=== PATIENT | female | born 1990 | race Two or more races ===

== ENCOUNTER 2018-11-21 22:38 | Emergency (ER) | payer SELFPAY ==
[~2018-11-21] VITALS: Ht 154.9 cm; Wt 84.8 kg
[~2018-11-21 22:38] MED LIST: HYDR50CA2
[2018-11-22 00:07] LABS: Urine Bacteria MOD /hpf (None Seen); Urine Blood Negative /uL (Negative); Urine Specific Gravity 1.006 (1.001-1.035); Urine WBC 3 /hpf (0 - 5)
[2018-11-22 01:40] LABS: Basophils # (auto) 0 uL; Basophils % (auto) 0.5 % (0.0-2.0); Eosinophils # (auto) 0.1 uL; Eosinophils % (auto) 1.1 % (0.0-7.0); Hematocrit 42.3 % (36.0-46.0); Hemoglobin 14.2 g/dL (12.2-16.2); Lymphocytes # (auto) 2.3 uL; Lymphocytes % (auto) 25.7 % (10.0-50.0); Mean Corpuscular Hemoglobin 27.3 pg (28.0-32.0); Mean Corpuscular Hgb Conc. 33.5 g/dL (32.0-36.0); Mean Corpuscular Volume 81.7 fL (80.0-100.0); Monocytes # (auto) 0.6 uL; Monocytes % (auto) 6.4 % (0.0-12.0); Neutrophils % (auto) 66.3 % (37.0-80.0); Nucleated Red Blood Cells % 0.1 %; Platelet Count (auto) 208 10^3/uL (140-450); Red Blood Cells 5.18 10^6/uL (4.0-5.20); Red Cell Distribution Width 13.9 % (11.8-14.3); White Blood Cell 9.1 10^3/uL (4.4-10.8)
[2018-11-22 01:43] LABS: Albumin 3.7 g/dL (3.4-5.0); BUN/Creatinine Ratio 17.9; Calcium 8.7 mg/dL (8.5-10.1); Potassium 4.2 mmol/L (3.5-5.1)
[2018-11-22 01:47] LABS: Bilirubin, Total 0.3 mg/dL (0.2-1.0); Total Protein 8.1 g/dL (6.4-8.2)
[2018-11-22] MEDS ORDERED: NITROFURANTOIN (MONO) 100 mg CAP PO ONE (02:30)
[2018-11-22 02:32] VITALS: BP 152/76
== END 2018-11-22 02:59 | disposition home or self-care (01) ==
LOC: ER 22:42
DX: N39.0 Urinary tract infection, site not specified (principal); K59.00 Constipation, unspecified
CPT/HCPCS: 36415; 74176; 80053; 81001; 81025; 85025

== ENCOUNTER 2020-07-07 18:08 | Emergency (ER) | payer SELFPAY ==
[~2020-07-07] VITALS: Ht 154.9 cm; Wt 77.1 kg
[2020-07-07] MEDS ORDERED: DexAMETHasone SOD PHOS 10MG/1ML VIAL INJ IV ONE (21:00)
[2020-07-07] MEDS ORDERED: DOXYCYCLINE 100MG/250ML 250 ML IV ONE (21:00)
[2020-07-07 21:16] LABS: Basophils # (auto) 0 10 ^3/uL (0-0.2); Basophils % (auto) 0.3 % (0.0-2.0); Eosinophils # (auto) 0.1 10 ^3/uL (0-0.8); Eosinophils % (auto) 1.1 % (0.0-7.0); Hematocrit 39.6 % (36.0-46.0); Hemoglobin 12.9 g/dL (12.2-16.2); Lymphocytes # (auto) 1.7 10 ^3/uL (0.4-5.4); Lymphocytes % (auto) 34.4 % (10.0-50.0); Mean Corpuscular Hemoglobin 27.5 pg (28.0-32.0); Mean Corpuscular Hgb Conc. 32.7 g/dL (32.0-36.0); Monocytes # (auto) 0.6 10 ^3/uL (0-1.3); Monocytes % (auto) 12.1 % (0.0-12.0); Neutrophils # (auto) 2.5 10 ^3/uL (1.6-8.6); Neutrophils % (auto) 52.1 % (37.0-80.0); Platelet Count (auto) 116 10^3/uL (140-450); Red Blood Cells 4.71 10^6/uL (4.0-5.20); Red Cell Distribution Width 13.9 % (11.8-14.3); White Blood Cell 4.8 10^3/uL (4.4-10.8)
[2020-07-07] MEDS ORDERED: DOXYCYCLINE 100 MG TAB/CAP PO ONE (21:30)
[2020-07-07] MEDS ORDERED: DexAMETHasone 4 MG TAB PO ONE (21:30)
[2020-07-07 21:33] LABS: Albumin 3.3 g/dL (3.4-5.0); Potassium 3.6 mmol/L (3.5-5.1)
[2020-07-07 21:37] LABS: BUN/Creatinine Ratio 21.2; Bilirubin, Total 0.1 mg/dL (0.2-1.0); Total Protein 7.1 g/dL (6.4-8.2)
[2020-07-07 22:37] VITALS: BP 106/63
== END 2020-07-07 23:05 | disposition home or self-care (01) ==
LOC: ER 18:08
DX: J18.9 Pneumonia, unspecified organism (principal); J01.00 Acute maxillary sinusitis, unspecified; Z20.828 Contact with and (suspected) exposure to other viral communicable diseases
CPT/HCPCS: 36415; 71045; 80053; 85025; 87426; 99284; J8540; U0003

== ENCOUNTER 2020-07-08 05:55 | Inpatient (IN) | payer MEDICAID ==
[~2020-07-08] VITALS: Ht 154.9 cm; Wt 89.5 kg
[2020-07-08] MEDS ORDERED: SODIUM CHLORIDE 0.9% 1,000 ML IV ONE (10:30)
[2020-07-08 12:59] LABS: Urine Bacteria FEW /hpf (None Seen); Urine Blood Negative /uL (Negative); Urine Specific Gravity 1.006 (1.001-1.035); Urine WBC 1 /hpf (0 - 5)
[2020-07-08] MEDS ORDERED: cefTRIAXone 1GM/50ML D5W 50 ML IV ONE (15:00)
[2020-07-08] MEDS ORDERED: CHOLECALCIFEROL (VITD3) 2,000 UNIT CAP PO ONE (15:00)
[2020-07-08] MEDS ORDERED: ZINC SULFATE 220mg CAP or TAB PO ONE (15:00)
[2020-07-08] MEDS ORDERED: ASCORBIC ACID 500 MG TAB PO ONE (15:00)
[2020-07-08] MEDS ORDERED: AZITHROMYCIN 500MG/ 250ML 250 ML IV ONE (15:00)
[2020-07-08 17:31] LABS: Basophils # (auto) 0 10 ^3/uL (0-0.2); Eosinophils # (auto) 0 10 ^3/uL (0-0.8); Hematocrit 38.6 % (36.0-46.0); Hemoglobin 12.6 g/dL (12.2-16.2); Mean Corpuscular Hemoglobin 26.8 pg (28.0-32.0); Monocytes # (auto) 0.3 10 ^3/uL (0-1.3); Nucleated Red Blood Cells % 0.1 %
[2020-07-08 17:32] LABS: Basophils % (auto) 0.3 % (0.0-2.0); Lymphocytes % (auto) 33.7 % (10.0-50.0); Mean Corpuscular Hgb Conc. 32.7 g/dL (32.0-36.0); Mean Corpuscular Volume 81.8 fL (80.0-100.0); Monocytes % (auto) 9.9 % (0.0-12.0); Neutrophils # (auto) 1.7 10 ^3/uL (1.6-8.6); Neutrophils % (auto) 56.1 % (37.0-80.0); Platelet Count (auto) 133 10^3/uL (140-450); Red Blood Cells 4.72 10^6/uL (4.0-5.20)
[2020-07-08 17:47] LABS: Albumin 3.5 g/dL (3.4-5.0); Calcium 8.2 mg/dL (8.5-10.1); Potassium 3.4 mmol/L (3.5-5.1)
[2020-07-08 17:51] LABS: BUN/Creatinine Ratio 10.4; Bilirubin, Total 0.2 mg/dL (0.2-1.0); CRP High Sensitivity 0.54 mg/dL (< 0.3); Total Protein 7.3 g/dL (6.4-8.2)
--- NOTE | 2020-07-08 19:50 | NUR ---
Telemetry admit from [facility] admitted to Telemetry unit after SBAR received. Patient oriented to JAX HOBSON RN primary RN, unit, room, bed, and unit policies regarding patient care and visiting hours. Patient now on continuous telemetry monitoring, tele box # 4 and telemetry reading on arrival to unit is Sinus Rhythm at 92BPM. Patient placed on bedside oxygen, weighed by bedscale and encouraged to call if they need something. All questions and concerns addressed, patient verbalized understanding.
[2020-07-08 20:00] VITALS: BP 119/75
[2020-07-08] MEDS: BUDESONIDE (INHALATION) 180 MCG IH IN SCH (22:00)
[2020-07-08] MEDS: ALBUTEROL SULF HFA 90MCG INH 200DOSE IN SCH (22:00)
[2020-07-08 22:01] VITALS: BP 119/75
--- NOTE | 2020-07-08 22:35 | NUR ---
Respiratory note: PT SEEN AND ASSESSED AT THIS TIME. NO RESPIRATORY DISTRESS NOTED BUT THE PT WAS COMPLAINING OF BEING NERVOUS/ANXIOUS. HR 97 RR 18 SP02 98% ON ROOM AIR.
[2020-07-08] MEDS: DOXYCYCLINE 100MG/250ML 250 ML IV SCH (22:37)
[2020-07-08 23:29] VITALS: BP 119/75
--- NOTE | 2020-07-09 04:58 | NUR ---
ROUNDS Patient is resting in bed with eyes closed, no distress noted and patient denies pain.
[2020-07-09 05:00] VITALS: BP 109/67
[2020-07-09] MEDS: ALBUTEROL SULF HFA 90MCG INH 200DOSE IN SCH ×3 (06:00→23:01)
[2020-07-09] MEDS: BUDESONIDE (INHALATION) 180 MCG IH IN SCH ×2 (06:00→23:01)
--- NOTE | 2020-07-09 08:00 | NUR ---
ASSESSMENT NOTE PT IS ALERT ORIENTED X4, SITTING UP IN BED COMFORTABLY, NO DISTRESS NOTED, DENIES COUGH OR SHORTNESS OF BREATH, SELF REPOSITION NEEDED, PAIN 0/10, AMBULATE NEEDED, CALL LIGHT WITHIN REACH
[2020-07-09 09:04] VITALS: BP 116/75
--- NOTE | 2020-07-09 09:30 | NUR ---
IV insertion IV access obtained, via clean sterile technique by inserting 22 gauge catheter at after attempt(s). IV secured properly. No trauma to site. Patient tolerated procedure well.
[2020-07-09] MEDS: DOXYCYCLINE 100MG/250ML 250 ML IV SCH ×2 (09:38→22:15)
[2020-07-09] MEDS: PANTOPRAZOLE 40 MG TAB PO SCH (09:39)
[2020-07-09] MEDS: ASCORBIC ACID 1,000 MG TAB PO SCH (09:39)
[2020-07-09] MEDS: CHOLECALCIFEROL (VITD3) 2,000 UNIT CAP PO SCH (09:39)
[2020-07-09] MEDS: ZINC SULFATE 220mg CAP or TAB PO SCH (09:39)
[2020-07-09] MEDS: ENOXAPARIN SOD 40 MG/0.4 ML SYRINGE SC SCH (09:39)
--- NOTE | 2020-07-09 09:44 | NUR ---
IV removal IV DC'd with sterile technique, catheter fully intact. Pressure dressing applied to site. Patient tolerated procedure well. Discharged with aftercare instructions per MD. NOTE: from rt ac, since its tender
[2020-07-09] MEDS ORDERED: DexAMETHasone SOD PHOS 10MG/1ML VIAL INJ IV SCH (10:00)
[2020-07-09] MEDS ORDERED: POTASSIUM EFFERVESENT TAB 25 MEQ PO ONE (11:30)
--- NOTE | 2020-07-09 11:30 | NUR ---
CATHERINE QUILLER MACHINE FIXER AT BED SIDE FOLLOWING UP ON PT
[2020-07-09] MEDS ORDERED: ALPRAZolam 0.25 MG TAB PO PRN (11:45)
[2020-07-09] MEDS ORDERED: ONDANSETRON HCL 4 MG/2 ML VIAL IV PRN (13:00)
[2020-07-09 13:10] VITALS: BP 107/64
--- NOTE | 2020-07-09 13:20 | NUR ---
NAUSEA FRO PO K ZOFRAN ORDERS OBTAIN FROM CATHERINE STORM
--- NOTE | 2020-07-09 14:00 | NUR ---
PT STABLE, CONTINUE MONITORING
[2020-07-09 15:42] LABS: BUN/Creatinine Ratio 5.8; Potassium 4.2 mmol/L (3.5-5.1)
[2020-07-09 17:12] VITALS: BP 111/53
--- NOTE | 2020-07-09 18:55 | NUR ---
PT CONTINUE STABLE, CONTINUE MONITORING
[2020-07-09 20:00] VITALS: BP 113/58
[2020-07-09] MEDS: ACETAMINOPHEN 500 MG TAB PO PRN (20:29)
--- NOTE | 2020-07-09 20:30 | NUR ---
Given tylenol as ordered for temperature of 101.5 and cooling measures applied. Will monitor
[2020-07-09 22:00] VITALS: BP 113/58
--- NOTE | 2020-07-09 22:00 | NUR ---
Temperature check is 98.1. patient is resting in bed alert and awake, no distress noted.
--- NOTE | 2020-07-09 22:38 | NUR ---
Patient refused xanax
--- NOTE | 2020-07-09 22:51 | NUR ---
PATIENTS TEMPERATURE AT 2200 VITAL SIGNS WERE 101.5 F. APPLIED A COLD WASH CLOTH AND REMOVED BLANKETS. RN WAS NOTIFIED OF TEMPERATURE.
--- NOTE | 2020-07-10 04:00 | NUR ---
Patient was having some sweats from fever. Complete bed changed done. Patient is resting in bed at this time, no distress noted and denies pain.
[2020-07-10 05:00] VITALS: BP 116/67
[2020-07-10] MEDS: DOXYCYCLINE 100MG/250ML 250 ML IV SCH ×2 (08:56→21:09)
[2020-07-10] MEDS: ASCORBIC ACID 1,000 MG TAB PO SCH (08:56)
[2020-07-10] MEDS: ENOXAPARIN SOD 40 MG/0.4 ML SYRINGE SC SCH (08:57)
[2020-07-10] MEDS: PANTOPRAZOLE 40 MG TAB PO SCH (08:57)
[2020-07-10] MEDS: ZINC SULFATE 220mg CAP or TAB PO SCH (08:57)
[2020-07-10] MEDS: CHOLECALCIFEROL (VITD3) 2,000 UNIT CAP PO SCH (08:57)
[2020-07-10 09:25] VITALS: BP 123/60
[2020-07-10] MEDS: BUDESONIDE (INHALATION) 180 MCG IH IN SCH ×2 (10:00→22:14)
[2020-07-10 14:00] VITALS: BP 123/75
[2020-07-10] MEDS: ALBUTEROL SULF HFA 90MCG INH 200DOSE IN SCH ×3 (14:30→22:14)
[2020-07-10] MEDS ORDERED: methylPREDNISolone SOD SUCC 40 MG/ML VL IV ONE (15:45)
[2020-07-10] MEDS: ACETAMINOPHEN 500 MG TAB PO PRN (16:49)
[2020-07-10 17:00] VITALS: BP 115/68
--- NOTE | 2020-07-10 19:30 | NUR ---
Opening Shift Note Assumed care of patient, awake and alert. No S/S of distress/SOB or pain. Instructed on POC and to call for assist PRN, will continue to monitor for changes Q1hr and PRN.
[2020-07-10 20:00] VITALS: BP 122/58
[2020-07-10] MEDS: methylPREDNISolone SOD SUCC 40 MG/ML VL IV SCH (21:10)
[2020-07-10 22:00] VITALS: BP 122/58
[2020-07-11 05:00] VITALS: BP 122/71
[2020-07-11] MEDS: ALBUTEROL SULF HFA 90MCG INH 200DOSE IN SCH ×2 (06:45→14:24)
[2020-07-11] MEDS: BUDESONIDE (INHALATION) 180 MCG IH IN SCH (06:45)
[2020-07-11 08:36] VITALS: BP 116/72
[2020-07-11] MEDS: methylPREDNISolone SOD SUCC 40 MG/ML VL IV SCH (10:08)
[2020-07-11] MEDS: PANTOPRAZOLE 40 MG TAB PO SCH (10:09)
[2020-07-11] MEDS: ZINC SULFATE 220mg CAP or TAB PO SCH (10:09)
[2020-07-11] MEDS: ASCORBIC ACID 1,000 MG TAB PO SCH (10:09)
[2020-07-11] MEDS: DOXYCYCLINE 100MG/250ML 250 ML IV SCH (10:09)
[2020-07-11] MEDS: CHOLECALCIFEROL (VITD3) 2,000 UNIT CAP PO SCH (10:09)
[2020-07-11] MEDS: ENOXAPARIN SOD 40 MG/0.4 ML SYRINGE SC SCH (10:10)
[2020-07-11 12:14] VITALS: BP 125/75
--- NOTE | 2020-07-11 14:26 | NUR ---
Nutrition Assessment Notes Please refer to link for full assessment notes. Est Energy needs: 1428-8363 kcals (14-18 kcal/kgBW) Est Protein needs: 38-48 gms/day (0.8-1.0 gm/kgBW) Will continue to monitor and reassess prn. Addendum: 07/11/20 at [address] Amended: Links added.
--- NOTE | 2020-07-11 16:49 | NUR ---
Discharge instructions given as ordered. Encourage to follow up with PMD as instructed. All questions and concerns addressed. Patient verbalized understanding. Medication reconciliation form completed and copy given to patient. IV removed with catheter intact, pressure dressing applied. Telemetry unit returned to ICU. Patient taken to vehicle via wheelchair with all personal belongings, accompanied by staff and family member. No distress noted at time of departure. PATIENT VERBALIZED UNDERSTANDING OF ALL DISCHARGE INSTRUCTIONS.
== END 2020-07-11 16:50 | disposition home or self-care (01) | DRG 137 ==
LOC: EDBD 05:55 → ER 05:55 → TELE 05:56 → TELE-EAST 19:50
PROVIDERS: ADMIT Nurse Practitioner Acute Care; ATTEND Internal Medicine
DX: U07.1 COVID-19 (principal); E66.9 Obesity, unspecified; J12.89 Other viral pneumonia; E87.6 Hypokalemia; F41.9 Anxiety disorder, unspecified; M41.9 Scoliosis, unspecified; Z68.37 Body mass index [BMI] 37.0-37.9, adult; E44.1 Mild protein-calorie malnutrition
CPT/HCPCS: 36415; 71250; 80048; 80053; 81001; 82728; 83615; 83735; 84443; 85025; 85379; 86141; 94640; 96365; 96366; 96368; G0378; J0696; J2405; J3490

== ENCOUNTER 2020-07-11 19:23 | Emergency (ER) | payer MEDICAID ==
[~2020-07-11] VITALS: Ht 167.6 cm; Wt 72.6 kg
[2020-07-11] MEDS ORDERED: ACETAMINOPHEN 325 MG TAB PO ONE (19:45)
[2020-07-11 19:49] VITALS: BP 127/90
== END 2020-07-11 19:55 | disposition home or self-care (01) ==
LOC: ER 19:23 → EDBD 19:23 → ER 19:55
DX: R06.02 Shortness of breath (principal); F41.9 Anxiety disorder, unspecified; Z79.899 Other long term (current) drug therapy; Z20.828 Contact with and (suspected) exposure to other viral communicable diseases

== ENCOUNTER 2020-07-13 11:37 | Inpatient (IN) | payer MEDICAID ==
[~2020-07-13] VITALS: Ht 154.9 cm; Wt 85.9 kg
[2020-07-13] MEDS ORDERED: ONDANSETRON HCL 4 MG/2 ML VIAL IV ONE (11:45)
[2020-07-13] MEDS ORDERED: MORPHINE SULFATE 4 MG/ML SYR/VIAL IV ONE (11:45)
[2020-07-13] MEDS ORDERED: SODIUM CHLORIDE 0.9% 1,000 ML IV ONE ×2 (11:45)
[2020-07-13 12:23] LABS: Basophils # (auto) 0 10 ^3/uL (0-0.2); Basophils % (auto) 0.3 % (0.0-2.0); Eosinophils # (auto) 0 10 ^3/uL (0-0.8); Eosinophils % (auto) 0.1 % (0.0-7.0); Hematocrit 40.9 % (36.0-46.0); Hemoglobin 13.6 g/dL (12.2-16.2); Lymphocytes % (auto) 15.1 % (10.0-50.0); Mean Corpuscular Hemoglobin 27.1 pg (28.0-32.0); Mean Corpuscular Hgb Conc. 33.4 g/dL (32.0-36.0); Mean Corpuscular Volume 81.3 fL (80.0-100.0); Monocytes # (auto) 0.7 10 ^3/uL (0-1.3); Neutrophils % (auto) 74.5 % (37.0-80.0); Nucleated Red Blood Cells % 0.1 %; Platelet Count (auto) 113 10^3/uL (140-450); Red Blood Cells 5.03 10^6/uL (4.0-5.20); Red Cell Distribution Width 13.7 % (11.8-14.3); White Blood Cell 6.7 10^3/uL (4.4-10.8)
[2020-07-13 12:39] LABS: Chloride 102 mmol/L (98-107); Potassium 3.3 mmol/L (3.5-5.1); Sodium 134 mmol/L (136-145)
[2020-07-13 12:51] LABS: Alanine Aminotransferase 27 U/L (13-56); Albumin 3.2 g/dL (3.4-5.0); Alkaline Phosphatase 51 U/L (45-117); Anion Gap 7 (5-15); Aspartate Aminotransferase 25 U/L (15-37); BUN/Creatinine Ratio 14.8; Bilirubin, Total 0.3 mg/dL (0.2-1.0); Blood Urea Nitrogen 8 mg/dL (7-18); Calcium 8.2 mg/dL (8.5-10.1); Carbon Dioxide 25 mmol/L (21-32); GFR African American 173 mL/min; GFR Non-African American 143 mL/min; Glucose 100 mg/dL (74-106); Lipase 948 U/L (73-393); Total Protein 7.1 g/dL (6.4-8.2)
[2020-07-13] MEDS ORDERED: PIPERACILLIN-TAZOB 3.375GM 100 ML IV ONE (14:45)
[2020-07-13] MEDS ORDERED: ACETAMINOPHEN 650 mg PER 20.3 mL UD PO ONE (15:30)
[2020-07-13] MEDS ORDERED: NITROGLYCERIN 0.4 MG SL TAB SL PRN (15:45)
[2020-07-13] MEDS ORDERED: MORPHINE SULF INJ 2 MG/ML SYRINGE 1ML IV PRN (15:45)
[2020-07-13] MEDS ORDERED: DOXY100C2 PO (16:21)
[2020-07-13] MEDS ORDERED: BUDE1AER4 IN (16:21)
[2020-07-13] MEDS ORDERED: CHOL50007 PO (16:21)
[2020-07-13] MEDS ORDERED: METH-818 PO (16:21)
[2020-07-13] MEDS ORDERED: levoFLOXacin 500MG 100 ML IV ONE (16:30)
[2020-07-13] MEDS ORDERED: TEMAZEPAM 15 MG CAP PO PRN (16:30)
[2020-07-13] MEDS: SOD CHL 0.9%/ KCL 40MEQ 1,000 ML IV SCH (18:26)
[2020-07-13] MEDS: POTASSIUM CHL 20MEQ/100ML 100 ML IV SCH (18:26)
[2020-07-13] MEDS: PROMETHAZINE HCL 25 MG/ML 1ML IV PRN (18:52)
[2020-07-13] MEDS: MORPHINE SULF INJ 2 MG/ML SYRINGE 1ML IV PRN (18:52)
[2020-07-13] MEDS: ACETAMINOPHEN 500 MG TAB PO PRN (18:53)
[2020-07-13] MEDS: metroNIDAZOLE 500MG/100ML 100 ML IV SCH (21:33)
[2020-07-13] MEDS: FAMOTIDINE (10MG/ML) 2ML VL IV SCH (21:33)
[2020-07-13 21:53] VITALS: BP 99/41
[2020-07-13] MEDS: BUDESONIDE (INHALATION) 180 MCG IH IN SCH (22:00)
[2020-07-13] MEDS: ALBUTEROL SULF HFA 90MCG INH 200DOSE IN SCH (22:00)
[2020-07-13] MEDS ORDERED: FAMOTIDINE 20 MG TAB PO SCH (22:00)
[2020-07-14] MEDS ORDERED: POTASSIUM CHL 20MEQ/100ML 100 ML IV ONE (00:42)
[2020-07-14] MEDS: POTASSIUM CHL 20MEQ/100ML 100 ML IV SCH (00:47)
[2020-07-14] MEDS: SOD CHL 0.9%/ KCL 40MEQ 1,000 ML IV SCH ×4 (00:50→23:47)
[2020-07-14] MEDS: MORPHINE SULF INJ 2 MG/ML SYRINGE 1ML IV PRN ×2 (02:47→11:04)
[2020-07-14] MEDS: ACETAMINOPHEN 500 MG TAB PO PRN (02:48)
[2020-07-14] MEDS: PROMETHAZINE HCL 25 MG/ML 1ML IV PRN ×2 (02:48→11:04)
[2020-07-14 05:46] VITALS: BP 106/52
[2020-07-14] MEDS: metroNIDAZOLE 500MG/100ML 100 ML IV SCH ×2 (06:23→13:32)
[2020-07-14 07:31] LABS: Basophils # (auto) 0 10 ^3/uL (0-0.2); Eosinophils # (auto) 0 10 ^3/uL (0-0.8); Monocytes # (auto) 0.3 10 ^3/uL (0-1.3); Neutrophils # (auto) 2.8 10 ^3/uL (1.6-8.6)
[2020-07-14 07:33] LABS: Basophils % (auto) 0.3 % (0.0-2.0); Hematocrit 36.1 % (36.0-46.0); Hemoglobin 11.9 g/dL (12.2-16.2); Lymphocytes # (auto) 1.2 10 ^3/uL (0.4-5.4); Lymphocytes % (auto) 27.8 % (10.0-50.0); Mean Corpuscular Hemoglobin 26.8 pg (28.0-32.0); Mean Corpuscular Volume 81.2 fL (80.0-100.0); Monocytes % (auto) 7.6 % (0.0-12.0); Neutrophils % (auto) 64.3 % (37.0-80.0); Nucleated Red Blood Cells % 0.1 %; Platelet Count (auto) 99 10^3/uL (140-450); Red Blood Cells 4.45 10^6/uL (4.0-5.20); White Blood Cell 4.3 10^3/uL (4.4-10.8)
[2020-07-14] MEDS: ALBUTEROL SULF HFA 90MCG INH 200DOSE IN SCH ×3 (07:39→22:02)
[2020-07-14] MEDS: BUDESONIDE (INHALATION) 180 MCG IH IN SCH ×3 (07:39→22:02)
[2020-07-14 07:42] LABS: Albumin 2.7 g/dL (3.4-5.0); Calcium 7.4 mg/dL (8.5-10.1); Potassium 4.3 mmol/L (3.5-5.1)
[2020-07-14 07:45] LABS: BUN/Creatinine Ratio 13.2; Bilirubin, Total 0.2 mg/dL (0.2-1.0); Total Protein 6.1 g/dL (6.4-8.2)
[2020-07-14 08:40] VITALS: BP 105/55
[2020-07-14] MEDS ORDERED: levoFLOXacin 500MG 100 ML IV SCH (10:00)
[2020-07-14] MEDS: ASCORBIC ACID 1,000 MG TAB PO SCH (10:24)
[2020-07-14] MEDS: DexAMETHasone SOD PHOS 10MG/1ML VIAL INJ IV SCH (10:24)
[2020-07-14] MEDS: ZINC SULFATE 220mg CAP or TAB PO SCH (10:24)
[2020-07-14] MEDS: FAMOTIDINE (10MG/ML) 2ML VL IV SCH ×2 (10:24→22:05)
[2020-07-14] MEDS: CHOLECALCIFEROL (VITD3) 2,000 UNIT CAP PO SCH (10:25)
[2020-07-14] MEDS: traMADol HCL 50 MG TAB PO PRN (10:25)
[2020-07-14 13:20] VITALS: BP 116/66
[2020-07-14] MEDS: DOXYCYCLINE 100MG/250ML 250 ML IV SCH (15:49)
[2020-07-14 17:21] VITALS: BP 136/77
[2020-07-14] MEDS: guaiFENesin-DM 100/10mg/5ml SYR PO PRN (17:50)
[2020-07-14 18:45] LABS: Urine Bacteria NONE SEEN /hpf (None Seen); Urine Blood Negative /uL (Negative); Urine Mucus FEW (None Seen); Urine Specific Gravity 1.016 (1.001-1.035); Urine WBC 2 /hpf (0 - 5)
[2020-07-14 21:49] VITALS: BP 110/62
[2020-07-14] MEDS ORDERED: ZOLPIDEM TARTRATE 5 MG TAB PO PRN (22:15)
[2020-07-15] MEDS: DOXYCYCLINE 100MG/250ML 250 ML IV SCH ×2 (02:20→16:04)
[2020-07-15] MEDS: traMADol HCL 50 MG TAB PO PRN (03:53)
[2020-07-15] MEDS: guaiFENesin-DM 100/10mg/5ml SYR PO PRN ×2 (03:53→09:59)
[2020-07-15 05:23] VITALS: BP 124/75
[2020-07-15] MEDS: BUDESONIDE (INHALATION) 180 MCG IH IN SCH ×2 (07:35→21:31)
[2020-07-15] MEDS: ALBUTEROL SULF HFA 90MCG INH 200DOSE IN SCH ×3 (07:35→21:31)
[2020-07-15 08:05] LABS: Basophils # (auto) 0 10 ^3/uL (0-0.2); Basophils % (auto) 0.1 % (0.0-2.0); Eosinophils # (auto) 0 10 ^3/uL (0-0.8); Hematocrit 39.3 % (36.0-46.0); Hemoglobin 12.6 g/dL (12.2-16.2); Lymphocytes # (auto) 0.9 10 ^3/uL (0.4-5.4); Lymphocytes % (auto) 13.1 % (10.0-50.0); Mean Corpuscular Hemoglobin 26.5 pg (28.0-32.0); Mean Corpuscular Volume 82.8 fL (80.0-100.0); Monocytes # (auto) 0.5 10 ^3/uL (0-1.3); Monocytes % (auto) 7.9 % (0.0-12.0); Neutrophils # (auto) 5.3 10 ^3/uL (1.6-8.6); Neutrophils % (auto) 78.9 % (37.0-80.0); Platelet Count (auto) 120 10^3/uL (140-450); Red Blood Cells 4.75 10^6/uL (4.0-5.20); Red Cell Distribution Width 14.2 % (11.8-14.3); White Blood Cell 6.8 10^3/uL (4.4-10.8)
[2020-07-15 08:21] LABS: BUN/Creatinine Ratio 14.3; Calcium 8.1 mg/dL (8.5-10.1); Potassium 4.2 mmol/L (3.5-5.1)
[2020-07-15 09:00] VITALS: BP 128/70
[2020-07-15] MEDS: DexAMETHasone SOD PHOS 10MG/1ML VIAL INJ IV SCH (09:49)
[2020-07-15] MEDS: FAMOTIDINE (10MG/ML) 2ML VL IV SCH ×2 (09:49→21:34)
[2020-07-15] MEDS: CHOLECALCIFEROL (VITD3) 2,000 UNIT CAP PO SCH (09:50)
[2020-07-15] MEDS: ZINC SULFATE 220mg CAP or TAB PO SCH (09:50)
[2020-07-15] MEDS: ASCORBIC ACID 1,000 MG TAB PO SCH (09:50)
[2020-07-15] MEDS: SOD CHL 0.9%/ KCL 40MEQ 1,000 ML IV SCH (10:10)
[2020-07-15 13:00] VITALS: BP 123/75
[2020-07-15] MEDS: guaiFENesin-CODEINE Liq 5 ML UD PO PRN ×3 (15:19→23:32)
[2020-07-15 17:00] VITALS: BP 113/65
[2020-07-15 21:30] VITALS: BP 125/71
[2020-07-16] MEDS: DOXYCYCLINE 100MG/250ML 250 ML IV SCH ×2 (03:10→15:31)
[2020-07-16 05:00] VITALS: BP 123/78
[2020-07-16 06:00] LABS: Basophils # (auto) 0 10 ^3/uL (0-0.2); Eosinophils # (auto) 0 10 ^3/uL (0-0.8); Lymphocytes # (auto) 0.8 10 ^3/uL (0.4-5.4); Mean Corpuscular Volume 81.2 fL (80.0-100.0); Monocytes # (auto) 0.4 10 ^3/uL (0-1.3)
[2020-07-16 06:02] LABS: Basophils % (auto) 0.1 % (0.0-2.0); Hematocrit 39.2 % (36.0-46.0); Hemoglobin 12.9 g/dL (12.2-16.2); Lymphocytes % (auto) 21.5 % (10.0-50.0); Mean Corpuscular Hemoglobin 26.8 pg (28.0-32.0); Monocytes % (auto) 10.8 % (0.0-12.0); Neutrophils # (auto) 2.6 10 ^3/uL (1.6-8.6); Neutrophils % (auto) 67.6 % (37.0-80.0); Platelet Count (auto) 137 10^3/uL (140-450); Red Blood Cells 4.83 10^6/uL (4.0-5.20); Red Cell Distribution Width 13.7 % (11.8-14.3); White Blood Cell 3.8 10^3/uL (4.4-10.8)
[2020-07-16 06:15] LABS: INR 1.08 (0.9-1.15); Partial Thromboplastin Time 25.6 sec (23.0-31.2)
[2020-07-16 06:16] LABS: Potassium 3.8 mmol/L (3.5-5.1)
[2020-07-16 06:22] LABS: Albumin 2.9 g/dL (3.4-5.0); BUN/Creatinine Ratio 12.5; Bilirubin, Total 0.4 mg/dL (0.2-1.0); Calcium 8.9 mg/dL (8.5-10.1); Magnesium 2.3 mg/dL (1.6-2.6); Phosphorus 2.6 mg/dL (2.5-4.90); Total Protein 7.3 g/dL (6.4-8.2)
[2020-07-16] MEDS: ALBUTEROL SULF HFA 90MCG INH 200DOSE IN SCH ×3 (07:44→22:11)
[2020-07-16] MEDS: BUDESONIDE (INHALATION) 180 MCG IH IN SCH ×2 (07:44→22:12)
[2020-07-16] MEDS: ZINC SULFATE 220mg CAP or TAB PO SCH (08:56)
[2020-07-16] MEDS: ASCORBIC ACID 1,000 MG TAB PO SCH (08:56)
[2020-07-16] MEDS: CHOLECALCIFEROL (VITD3) 2,000 UNIT CAP PO SCH (08:56)
[2020-07-16] MEDS: DexAMETHasone SOD PHOS 10MG/1ML VIAL INJ IV SCH (08:56)
[2020-07-16] MEDS: FAMOTIDINE (10MG/ML) 2ML VL IV SCH ×2 (08:56→21:37)
[2020-07-16] MEDS: guaiFENesin-CODEINE Liq 5 ML UD PO PRN ×5 (08:58→21:38)
[2020-07-16 09:00] VITALS: BP 125/75
[2020-07-16 12:54] VITALS: BP 117/61
[2020-07-16 17:00] VITALS: BP 114/75
[2020-07-16 20:51] VITALS: BP 114/74
[2020-07-17] MEDS ORDERED: FUROSEMIDE 20 MG/2 ML VIAL IV ONE (00:15)
[2020-07-17] MEDS: DOXYCYCLINE 100MG/250ML 250 ML IV SCH ×2 (02:40→15:15)
[2020-07-17 02:41] VITALS: BP 114/74
[2020-07-17 05:06] VITALS: BP 111/74
[2020-07-17] MEDS: FUROSEMIDE 20 MG/2 ML VIAL IV SCH ×2 (06:36→17:35)
[2020-07-17] MEDS: ALBUTEROL SULF HFA 90MCG INH 200DOSE IN SCH ×3 (07:16→22:09)
[2020-07-17] MEDS: BUDESONIDE (INHALATION) 180 MCG IH IN SCH ×2 (07:16→22:09)
[2020-07-17 08:28] LABS: Basophils # (auto) 0 10 ^3/uL (0-0.2); Eosinophils # (auto) 0 10 ^3/uL (0-0.8); Lymphocytes # (auto) 1.3 10 ^3/uL (0.4-5.4); Nucleated Red Blood Cells % 0.1 %
[2020-07-17 08:36] LABS: Eosinophils % (auto) 0.1 % (0.0-7.0); Hematocrit 41.5 % (36.0-46.0); Hemoglobin 13.9 g/dL (12.2-16.2); Lymphocytes % (auto) 16.9 % (10.0-50.0); Mean Corpuscular Hgb Conc. 33.6 g/dL (32.0-36.0); Mean Corpuscular Volume 80.4 fL (80.0-100.0); Monocytes # (auto) 0.7 10 ^3/uL (0-1.3); Monocytes % (auto) 8.7 % (0.0-12.0); Neutrophils # (auto) 5.9 10 ^3/uL (1.6-8.6); Neutrophils % (auto) 74.3 % (37.0-80.0); Platelet Count (auto) 226 10^3/uL (140-450); Red Blood Cells 5.17 10^6/uL (4.0-5.20); Red Cell Distribution Width 13.7 % (11.8-14.3)
[2020-07-17 08:51] LABS: INR 1.09 (0.9-1.15); Partial Thromboplastin Time 23.4 sec (23.0-31.2)
[2020-07-17 09:00] VITALS: BP 104/55
[2020-07-17 09:05] LABS: Potassium 3.4 mmol/L (3.5-5.1)
[2020-07-17 09:14] LABS: Albumin 3.4 g/dL (3.4-5.0); BUN/Creatinine Ratio 25.5; Bilirubin, Total 0.6 mg/dL (0.2-1.0); Calcium 8.8 mg/dL (8.5-10.1); Magnesium 2.5 mg/dL (1.6-2.6); Phosphorus 3.2 mg/dL (2.5-4.90); Total Protein 7.9 g/dL (6.4-8.2)
[2020-07-17] MEDS: ZINC SULFATE 220mg CAP or TAB PO SCH (10:42)
[2020-07-17] MEDS: DexAMETHasone SOD PHOS 10MG/1ML VIAL INJ IV SCH (10:42)
[2020-07-17] MEDS: FAMOTIDINE (10MG/ML) 2ML VL IV SCH ×2 (10:42→21:36)
[2020-07-17] MEDS: ENOXAPARIN SOD 40 MG/0.4 ML SYRINGE SC SCH (10:43)
[2020-07-17] MEDS: ASCORBIC ACID 1,000 MG TAB PO SCH (10:43)
[2020-07-17] MEDS: CHOLECALCIFEROL (VITD3) 2,000 UNIT CAP PO SCH (10:43)
[2020-07-17] MEDS: PROMETHAZINE HCL 25 MG/ML 1ML IV PRN (12:40)
[2020-07-17 13:00] VITALS: BP 110/71
[2020-07-17 16:30] VITALS: BP 98/64
[2020-07-17 21:20] VITALS: BP 103/69
[2020-07-18] MEDS: DOXYCYCLINE 100MG/250ML 250 ML IV SCH ×2 (02:49→15:07)
[2020-07-18 05:00] VITALS: BP 116/70
[2020-07-18] MEDS: FUROSEMIDE 20 MG/2 ML VIAL IV SCH ×2 (05:56→17:53)
[2020-07-18] MEDS: ALBUTEROL SULF HFA 90MCG INH 200DOSE IN SCH ×3 (06:50→21:48)
[2020-07-18] MEDS: BUDESONIDE (INHALATION) 180 MCG IH IN SCH ×2 (06:51→21:48)
[2020-07-18 08:40] VITALS: BP 124/67
[2020-07-18] MEDS: DexAMETHasone SOD PHOS 10MG/1ML VIAL INJ IV SCH (09:47)
[2020-07-18] MEDS: FAMOTIDINE (10MG/ML) 2ML VL IV SCH ×2 (09:48→20:58)
[2020-07-18] MEDS: CHOLECALCIFEROL (VITD3) 2,000 UNIT CAP PO SCH (09:48)
[2020-07-18] MEDS: ZINC SULFATE 220mg CAP or TAB PO SCH (09:48)
[2020-07-18] MEDS: ENOXAPARIN SOD 40 MG/0.4 ML SYRINGE SC SCH (09:48)
[2020-07-18] MEDS: ASCORBIC ACID 1,000 MG TAB PO SCH (09:48)
[2020-07-18] MEDS: traMADol HCL 50 MG TAB PO PRN (09:49)
[2020-07-18 10:57] LABS: Basophils # (auto) 0 10 ^3/uL (0-0.2); Basophils % (auto) 0.1 % (0.0-2.0); Eosinophils # (auto) 0 10 ^3/uL (0-0.8); Eosinophils % (auto) 0.1 % (0.0-7.0); Hematocrit 46.9 % (36.0-46.0); Hemoglobin 15.6 g/dL (12.2-16.2); Lymphocytes # (auto) 1.8 10 ^3/uL (0.4-5.4); Lymphocytes % (auto) 15.2 % (10.0-50.0); Mean Corpuscular Hemoglobin 27.2 pg (28.0-32.0); Mean Corpuscular Hgb Conc. 33.2 g/dL (32.0-36.0); Mean Corpuscular Volume 81.9 fL (80.0-100.0); Monocytes # (auto) 0.9 10 ^3/uL (0-1.3); Monocytes % (auto) 8.2 % (0.0-12.0); Neutrophils # (auto) 8.8 10 ^3/uL (1.6-8.6); Neutrophils % (auto) 76.4 % (37.0-80.0); Platelet Count (auto) 255 10^3/uL (140-450); Red Blood Cells 5.73 10^6/uL (4.0-5.20); Red Cell Distribution Width 13.6 % (11.8-14.3); White Blood Cell 11.5 10^3/uL (4.4-10.8)
[2020-07-18 11:08] LABS: Potassium 3.2 mmol/L (3.5-5.1)
[2020-07-18 11:16] LABS: Calcium 8.9 mg/dL (8.5-10.1)
[2020-07-18 13:00] VITALS: BP 125/57
[2020-07-18 17:00] VITALS: BP 113/76
[2020-07-18 22:03] VITALS: BP 109/76
[2020-07-19] MEDS: DOXYCYCLINE 100MG/250ML 250 ML IV SCH ×2 (02:48→15:09)
[2020-07-19 05:00] VITALS: BP 103/57
[2020-07-19] MEDS: FUROSEMIDE 20 MG/2 ML VIAL IV SCH ×2 (06:00→18:10)
[2020-07-19 07:17] LABS: Basophils # (auto) 0 10 ^3/uL (0-0.2); Basophils % (auto) 0.1 % (0.0-2.0); Eosinophils # (auto) 0 10 ^3/uL (0-0.8); Eosinophils % (auto) 0.2 % (0.0-7.0); Hemoglobin 13.6 g/dL (12.2-16.2); Lymphocytes # (auto) 1.5 10 ^3/uL (0.4-5.4); Lymphocytes % (auto) 16.4 % (10.0-50.0); Mean Corpuscular Hemoglobin 27.2 pg (28.0-32.0); Mean Corpuscular Hgb Conc. 33.1 g/dL (32.0-36.0); Monocytes # (auto) 0.9 10 ^3/uL (0-1.3); Monocytes % (auto) 9.8 % (0.0-12.0); Neutrophils # (auto) 6.5 10 ^3/uL (1.6-8.6); Neutrophils % (auto) 73.5 % (37.0-80.0); Nucleated Red Blood Cells % 0.1 %; Platelet Count (auto) 255 10^3/uL (140-450); Red Cell Distribution Width 13.1 % (11.8-14.3); White Blood Cell 8.9 10^3/uL (4.4-10.8)
[2020-07-19 07:29] LABS: Calcium 8.9 mg/dL (8.5-10.1)
[2020-07-19 07:31] LABS: Potassium 2.9 mmol/L (3.5-5.1)
[2020-07-19] MEDS: ALBUTEROL SULF HFA 90MCG INH 200DOSE IN SCH ×3 (07:52→22:04)
[2020-07-19] MEDS: BUDESONIDE (INHALATION) 180 MCG IH IN SCH ×2 (07:52→22:04)
[2020-07-19 08:46] VITALS: BP 116/68
[2020-07-19] MEDS: DexAMETHasone SOD PHOS 10MG/1ML VIAL INJ IV SCH (10:41)
[2020-07-19] MEDS: FAMOTIDINE (10MG/ML) 2ML VL IV SCH ×2 (10:41→21:34)
[2020-07-19] MEDS: ZINC SULFATE 220mg CAP or TAB PO SCH (10:41)
[2020-07-19] MEDS: CHOLECALCIFEROL (VITD3) 2,000 UNIT CAP PO SCH (10:42)
[2020-07-19] MEDS: ENOXAPARIN SOD 40 MG/0.4 ML SYRINGE SC SCH (10:42)
[2020-07-19] MEDS: ASCORBIC ACID 1,000 MG TAB PO SCH (10:42)
[2020-07-19] MEDS: POTASSIUM CHL 20MEQ/100ML 100 ML IV SCH ×4 (12:38→19:16)
[2020-07-19 13:00] VITALS: BP 111/67
[2020-07-19 13:57] LABS: Albumin 3.4 g/dL (3.4-5.0); Calcium 8.9 mg/dL (8.5-10.1); Potassium 3.1 mmol/L (3.5-5.1)
[2020-07-19 14:01] LABS: BUN/Creatinine Ratio 24.5; Bilirubin, Total 0.7 mg/dL (0.2-1.0); Total Protein 7.5 g/dL (6.4-8.2)
[2020-07-19 16:16] LABS: Albumin 3.2 g/dL (3.4-5.0); Bilirubin, Direct 0.2 mg/dL (0-0.2)
[2020-07-19 16:19] LABS: Bilirubin, Total 0.6 mg/dL (0.2-1.0); Total Protein 7.4 g/dL (6.4-8.2)
[2020-07-19 16:55] VITALS: BP 123/67
[2020-07-19] MEDS ORDERED: REMDESIVIR 200 MG in NS 210ml LOADING DOSE ADULT IV ONE (17:00)
[2020-07-19 19:43] VITALS: BP 123/67
[2020-07-19 22:00] VITALS: BP 100/62
[2020-07-20] MEDS: DOXYCYCLINE 100MG/250ML 250 ML IV SCH ×2 (02:33→15:00)
[2020-07-20 05:00] VITALS: BP 102/60
[2020-07-20] MEDS: FUROSEMIDE 20 MG/2 ML VIAL IV SCH ×2 (06:00→18:46)
[2020-07-20] MEDS: BUDESONIDE (INHALATION) 180 MCG IH IN SCH ×2 (07:17→22:09)
[2020-07-20] MEDS: ALBUTEROL SULF HFA 90MCG INH 200DOSE IN SCH ×3 (07:17→22:09)
[2020-07-20] MEDS: ACETAMINOPHEN 500 MG TAB PO PRN (08:12)
[2020-07-20 08:13] VITALS: BP 108/55
[2020-07-20 09:38] LABS: Basophils # (auto) 0 10 ^3/uL (0-0.2); Basophils % (auto) 0.1 % (0.0-2.0); Eosinophils # (auto) 0.1 10 ^3/uL (0-0.8); Eosinophils % (auto) 0.5 % (0.0-7.0); Hematocrit 43.3 % (36.0-46.0); Hemoglobin 14.1 g/dL (12.2-16.2); Lymphocytes # (auto) 1.7 10 ^3/uL (0.4-5.4); Mean Corpuscular Hemoglobin 27.6 pg (28.0-32.0); Mean Corpuscular Hgb Conc. 32.4 g/dL (32.0-36.0); Monocytes # (auto) 0.9 10 ^3/uL (0-1.3); Monocytes % (auto) 8.2 % (0.0-12.0); Neutrophils % (auto) 75.2 % (37.0-80.0); Platelet Count (auto) 256 10^3/uL (140-450); Red Cell Distribution Width 13.4 % (11.8-14.3); White Blood Cell 10.6 10^3/uL (4.4-10.8)
[2020-07-20 10:00] LABS: Calcium 8.9 mg/dL (8.5-10.1); Chloride 101 mmol/L (98-107); Potassium 3.8 mmol/L (3.5-5.1); Sodium 134 mmol/L (136-145)
[2020-07-20 10:04] LABS: Anion Gap 7 (5-15); Blood Urea Nitrogen 13 mg/dL (7-18); Carbon Dioxide 26 mmol/L (21-32); GFR African American 156 mL/min; GFR Non-African American 129 mL/min; Glucose 74 mg/dL (74-106)
[2020-07-20] MEDS: FAMOTIDINE (10MG/ML) 2ML VL IV SCH ×2 (10:15→21:33)
[2020-07-20] MEDS: DexAMETHasone SOD PHOS 10MG/1ML VIAL INJ IV SCH (10:15)
[2020-07-20] MEDS: ZINC SULFATE 220mg CAP or TAB PO SCH (10:15)
[2020-07-20] MEDS: ENOXAPARIN SOD 40 MG/0.4 ML SYRINGE SC SCH (10:16)
[2020-07-20] MEDS: ASCORBIC ACID 1,000 MG TAB PO SCH (10:16)
[2020-07-20] MEDS: CHOLECALCIFEROL (VITD3) 2,000 UNIT CAP PO SCH (10:16)
[2020-07-20] MEDS: LACTULOSE 20Gm/30ML SOLN PO PRN (12:12)
[2020-07-20 12:52] VITALS: BP 120/72
[2020-07-20] MEDS: SIMETHICONE 80 MG CHEWABLE TABLET PO PRN (15:00)
[2020-07-20 16:38] VITALS: BP 123/68
[2020-07-20] MEDS: REMDESIVIR 100mg in NS 230ml DAILYx4DAYS (NO VENT) IV SCH (17:25)
[2020-07-20 22:05] VITALS: BP_SYST 122
[2020-07-21] MEDS: DOXYCYCLINE 100MG/250ML 250 ML IV SCH ×2 (02:50→14:18)
[2020-07-21] MEDS: SIMETHICONE 80 MG CHEWABLE TABLET PO PRN ×3 (03:01→21:34)
[2020-07-21 05:00] VITALS: BP 106/70
[2020-07-21] MEDS: FUROSEMIDE 20 MG/2 ML VIAL IV SCH ×2 (06:34→18:29)
[2020-07-21] MEDS: BUDESONIDE (INHALATION) 180 MCG IH IN SCH ×2 (07:10→22:20)
[2020-07-21] MEDS: ALBUTEROL SULF HFA 90MCG INH 200DOSE IN SCH ×3 (07:10→22:19)
[2020-07-21 08:00] VITALS: BP 121/81
[2020-07-21 09:00] VITALS: BP 121/81
[2020-07-21] MEDS: DexAMETHasone SOD PHOS 10MG/1ML VIAL INJ IV SCH (09:39)
[2020-07-21] MEDS: FAMOTIDINE (10MG/ML) 2ML VL IV SCH ×2 (09:39→21:22)
[2020-07-21] MEDS: CHOLECALCIFEROL (VITD3) 2,000 UNIT CAP PO SCH (09:40)
[2020-07-21] MEDS: ASCORBIC ACID 1,000 MG TAB PO SCH (09:40)
[2020-07-21] MEDS: ENOXAPARIN SOD 40 MG/0.4 ML SYRINGE SC SCH (09:40)
[2020-07-21] MEDS: ZINC SULFATE 220mg CAP or TAB PO SCH (09:40)
[2020-07-21 09:47] LABS: Basophils # (auto) 0 10 ^3/uL (0-0.2); Basophils % (auto) 0.2 % (0.0-2.0); Eosinophils # (auto) 0 10 ^3/uL (0-0.8); Eosinophils % (auto) 0.5 % (0.0-7.0); Hematocrit 41.3 % (36.0-46.0); Hemoglobin 13.7 g/dL (12.2-16.2); Lymphocytes # (auto) 1.4 10 ^3/uL (0.4-5.4); Lymphocytes % (auto) 16.6 % (10.0-50.0); Mean Corpuscular Hemoglobin 27.4 pg (28.0-32.0); Mean Corpuscular Hgb Conc. 33.2 g/dL (32.0-36.0); Mean Corpuscular Volume 82.6 fL (80.0-100.0); Monocytes # (auto) 0.5 10 ^3/uL (0-1.3); Monocytes % (auto) 5.5 % (0.0-12.0); Neutrophils # (auto) 6.7 10 ^3/uL (1.6-8.6); Neutrophils % (auto) 77.2 % (37.0-80.0); Nucleated Red Blood Cells % 0.1 %; Platelet Count (auto) 285 10^3/uL (140-450); Red Cell Distribution Width 13.4 % (11.8-14.3); White Blood Cell 8.7 10^3/uL (4.4-10.8)
[2020-07-21 10:00] LABS: Albumin 3.2 g/dL (3.4-5.0); Calcium 8.5 mg/dL (8.5-10.1)
[2020-07-21 10:04] LABS: BUN/Creatinine Ratio 21.1; Bilirubin, Total 0.7 mg/dL (0.2-1.0)
[2020-07-21 13:00] VITALS: BP 110/73
[2020-07-21 17:00] VITALS: BP 122/71
[2020-07-21] MEDS: REMDESIVIR 100mg in NS 230ml DAILYx4DAYS (NO VENT) IV SCH (17:39)
[2020-07-21 22:00] VITALS: BP 109/58
[2020-07-21] MEDS: LACTULOSE 20Gm/30ML SOLN PO PRN ×2 (23:15→23:16)
[2020-07-22] MEDS: DOXYCYCLINE 100MG/250ML 250 ML IV SCH ×2 (02:57→13:30)
[2020-07-22 05:00] VITALS: BP 137/65
[2020-07-22] MEDS: FUROSEMIDE 20 MG/2 ML VIAL IV SCH ×2 (06:30→17:36)
[2020-07-22] MEDS: ALBUTEROL SULF HFA 90MCG INH 200DOSE IN SCH ×3 (07:25→22:23)
[2020-07-22] MEDS: BUDESONIDE (INHALATION) 180 MCG IH IN SCH ×2 (07:25→22:23)
[2020-07-22 08:00] VITALS: BP 137/65
[2020-07-22 08:55] VITALS: BP 141/67
[2020-07-22] MEDS: DexAMETHasone SOD PHOS 10MG/1ML VIAL INJ IV SCH (10:05)
[2020-07-22] MEDS: ZINC SULFATE 220mg CAP or TAB PO SCH (10:05)
[2020-07-22] MEDS: FAMOTIDINE (10MG/ML) 2ML VL IV SCH ×2 (10:05→21:36)
[2020-07-22] MEDS: ASCORBIC ACID 1,000 MG TAB PO SCH (10:06)
[2020-07-22] MEDS: CHOLECALCIFEROL (VITD3) 2,000 UNIT CAP PO SCH (10:06)
[2020-07-22] MEDS: ENOXAPARIN SOD 40 MG/0.4 ML SYRINGE SC SCH (10:06)
[2020-07-22] MEDS: PROMETHAZINE HCL 25 MG/ML 1ML IV PRN (10:07)
[2020-07-22 12:39] VITALS: BP 109/68
[2020-07-22 13:20] LABS: Basophils # (auto) 0 10 ^3/uL (0-0.2); Eosinophils # (auto) 0 10 ^3/uL (0-0.8); Eosinophils % (auto) 0.1 % (0.0-7.0); Lymphocytes # (auto) 0.9 10 ^3/uL (0.4-5.4); Lymphocytes % (auto) 8.4 % (10.0-50.0); Monocytes # (auto) 0.5 10 ^3/uL (0-1.3); Neutrophils # (auto) 9.1 10 ^3/uL (1.6-8.6); Nucleated Red Blood Cells % 0.1 %; White Blood Cell 10.5 10^3/uL (4.4-10.8)
[2020-07-22 13:23] LABS: Basophils % (auto) 0.4 % (0.0-2.0); Hematocrit 40.1 % (36.0-46.0); Hemoglobin 13.4 g/dL (12.2-16.2); Mean Corpuscular Hemoglobin 26.9 pg (28.0-32.0); Mean Corpuscular Hgb Conc. 33.4 g/dL (32.0-36.0); Mean Corpuscular Volume 80.6 fL (80.0-100.0); Monocytes % (auto) 4.6 % (0.0-12.0); Neutrophils % (auto) 86.5 % (37.0-80.0); Platelet Count (auto) 302 10^3/uL (140-450); Red Blood Cells 4.97 10^6/uL (4.0-5.20); Red Cell Distribution Width 13.5 % (11.8-14.3)
[2020-07-22 13:38] LABS: Potassium 3.3 mmol/L (3.5-5.1)
[2020-07-22 13:46] LABS: Albumin 3.1 g/dL (3.4-5.0); BUN/Creatinine Ratio 19.1; Bilirubin, Total 0.6 mg/dL (0.2-1.0); Calcium 8.6 mg/dL (8.5-10.1); Total Protein 6.8 g/dL (6.4-8.2)
[2020-07-22 16:38] VITALS: BP 125/50
[2020-07-22] MEDS: REMDESIVIR 100mg in NS 230ml DAILYx4DAYS (NO VENT) IV SCH (17:35)
[2020-07-22 21:46] VITALS: BP 117/65
[2020-07-23 01:01] VITALS: BP 117/65
[2020-07-23] MEDS: DOXYCYCLINE 100MG/250ML 250 ML IV SCH ×2 (03:15→13:55)
[2020-07-23 05:00] VITALS: BP 124/78
[2020-07-23] MEDS: FUROSEMIDE 20 MG/2 ML VIAL IV SCH ×2 (05:59→18:04)
[2020-07-23] MEDS: ALBUTEROL SULF HFA 90MCG INH 200DOSE IN SCH ×3 (06:50→23:11)
[2020-07-23] MEDS: BUDESONIDE (INHALATION) 180 MCG IH IN SCH ×2 (06:50→23:12)
[2020-07-23 08:00] VITALS: BP_SYST 124; BP_DIAS 57; BP_DIAS 78
[2020-07-23] MEDS: DexAMETHasone SOD PHOS 10MG/1ML VIAL INJ IV SCH (08:59)
[2020-07-23] MEDS: ENOXAPARIN SOD 40 MG/0.4 ML SYRINGE SC SCH (09:00)
[2020-07-23] MEDS: ASCORBIC ACID 1,000 MG TAB PO SCH (09:00)
[2020-07-23] MEDS: CHOLECALCIFEROL (VITD3) 2,000 UNIT CAP PO SCH (09:00)
[2020-07-23] MEDS: ZINC SULFATE 220mg CAP or TAB PO SCH (09:00)
[2020-07-23] MEDS: FAMOTIDINE (10MG/ML) 2ML VL IV SCH ×2 (09:00→21:34)
[2020-07-23 10:46] LABS: Albumin 3.1 g/dL (3.4-5.0); Calcium 8.7 mg/dL (8.5-10.1)
[2020-07-23 10:49] LABS: BUN/Creatinine Ratio 23.3; Bilirubin, Total 0.6 mg/dL (0.2-1.0); Total Protein 6.5 g/dL (6.4-8.2)
[2020-07-23 11:06] LABS: Potassium 2.8 mmol/L (3.5-5.1)
[2020-07-23] MEDS ORDERED: POTASSIUM EFFERVESENT TAB 25 MEQ PO ONE (11:15)
[2020-07-23] MEDS: DOCUSATE SOD 100 MG CAP PO SCH ×2 (11:43→21:35)
[2020-07-23 12:00] VITALS: BP 124/75
[2020-07-23] MEDS: REMDESIVIR 100mg in NS 230ml DAILYx4DAYS (NO VENT) IV SCH (16:44)
[2020-07-23 17:00] VITALS: BP 136/66
[2020-07-23 21:52] VITALS: BP 113/57
[2020-07-23] MEDS ORDERED: DOCUSATE SOD 100 MG CAP PO SCH (22:00)
[2020-07-24] MEDS: DOXYCYCLINE 100MG/250ML 250 ML IV SCH ×2 (03:10→14:52)
[2020-07-24 04:58] VITALS: BP 111/60
[2020-07-24] MEDS: FUROSEMIDE 20 MG/2 ML VIAL IV SCH ×2 (06:08→16:57)
[2020-07-24] MEDS: ALBUTEROL SULF HFA 90MCG INH 200DOSE IN SCH ×3 (06:29→22:57)
[2020-07-24] MEDS: BUDESONIDE (INHALATION) 180 MCG IH IN SCH ×2 (06:29→22:57)
[2020-07-24 08:00] VITALS: BP 122/70
[2020-07-24] MEDS: DexAMETHasone SOD PHOS 10MG/1ML VIAL INJ IV SCH (10:16)
[2020-07-24] MEDS: FAMOTIDINE (10MG/ML) 2ML VL IV SCH ×2 (10:17→22:26)
[2020-07-24] MEDS: ENOXAPARIN SOD 40 MG/0.4 ML SYRINGE SC SCH (10:17)
[2020-07-24] MEDS: CHOLECALCIFEROL (VITD3) 2,000 UNIT CAP PO SCH (10:18)
[2020-07-24] MEDS: ZINC SULFATE 220mg CAP or TAB PO SCH (10:18)
[2020-07-24] MEDS: ASCORBIC ACID 1,000 MG TAB PO SCH (10:18)
[2020-07-24] MEDS: DOCUSATE SOD 100 MG CAP PO SCH ×2 (10:18→22:26)
[2020-07-24 12:00] VITALS: BP 113/78
[2020-07-24 12:06] LABS: Calcium 8.4 mg/dL (8.5-10.1); Potassium 3.2 mmol/L (3.5-5.1)
[2020-07-24 12:08] LABS: BUN/Creatinine Ratio 27.9
[2020-07-24 16:00] VITALS: BP 124/69
[2020-07-24 22:00] VITALS: BP 117/59
[2020-07-25] MEDS: DOXYCYCLINE 100MG/250ML 250 ML IV SCH ×2 (02:48→14:45)
[2020-07-25 05:00] VITALS: BP 117/54
[2020-07-25] MEDS: BUDESONIDE (INHALATION) 180 MCG IH IN SCH (07:14)
[2020-07-25] MEDS: ALBUTEROL SULF HFA 90MCG INH 200DOSE IN SCH ×2 (07:14→14:33)
[2020-07-25 07:47] LABS: Basophils # (auto) 0 10 ^3/uL (0-0.2); Eosinophils # (auto) 0 10 ^3/uL (0-0.8); Eosinophils % (auto) 0.1 % (0.0-7.0); Monocytes # (auto) 0.9 10 ^3/uL (0-1.3); Neutrophils % (auto) 68.1 % (37.0-80.0)
[2020-07-25 07:50] LABS: Basophils % (auto) 0.3 % (0.0-2.0); Hematocrit 39.1 % (36.0-46.0); Lymphocytes # (auto) 2.3 10 ^3/uL (0.4-5.4); Lymphocytes % (auto) 22.8 % (10.0-50.0); Mean Corpuscular Hemoglobin 27.3 pg (28.0-32.0); Mean Corpuscular Hgb Conc. 33.1 g/dL (32.0-36.0); Mean Corpuscular Volume 82.3 fL (80.0-100.0); Monocytes % (auto) 8.7 % (0.0-12.0); Neutrophils # (auto) 6.9 10 ^3/uL (1.6-8.6); Nucleated Red Blood Cells % 0.1 %; Platelet Count (auto) 279 10^3/uL (140-450); Red Blood Cells 4.75 10^6/uL (4.0-5.20); Red Cell Distribution Width 13.6 % (11.8-14.3); White Blood Cell 10.2 10^3/uL (4.4-10.8)
[2020-07-25 08:10] LABS: Calcium 8.4 mg/dL (8.5-10.1); Potassium 3.2 mmol/L (3.5-5.1)
[2020-07-25 08:12] LABS: BUN/Creatinine Ratio 23.8
[2020-07-25 08:51] VITALS: BP 110/71
[2020-07-25] MEDS: FAMOTIDINE (10MG/ML) 2ML VL IV SCH (09:38)
[2020-07-25] MEDS: ENOXAPARIN SOD 40 MG/0.4 ML SYRINGE SC SCH (09:39)
[2020-07-25] MEDS: ASCORBIC ACID 1,000 MG TAB PO SCH (09:39)
[2020-07-25] MEDS: ZINC SULFATE 220mg CAP or TAB PO SCH (09:39)
[2020-07-25] MEDS: CHOLECALCIFEROL (VITD3) 2,000 UNIT CAP PO SCH (09:39)
[2020-07-25] MEDS ORDERED: POTASSIUM EFFERVESENT TAB 25 MEQ GT ONE (09:45)
[2020-07-25] MEDS: DOCUSATE SOD 100 MG CAP PO SCH (10:07)
[2020-07-25] MEDS ORDERED: POTASSIUM EFFERVESENT TAB 25 MEQ PO ONE (12:00)
[2020-07-25] MEDS: POTASSIUM CHL 20MEQ/100ML 100 ML IV SCH ×2 (12:26→15:23)
[2020-07-25 12:59] VITALS: BP 119/62
[2020-07-25 16:35] VITALS: BP 119/62
[2020-07-25 17:00] VITALS: BP 111/58
== END 2020-07-25 19:00 | disposition home or self-care (01) | DRG 137 ==
LOC: ER 11:37 → EDBD 11:37 → TELE 11:38 → TELE-EAST 17:40 → TELE 07-14 09:50 → TELE-EAST 07-14 09:51
PROVIDERS: ADMIT Internal Medicine; ATTEND Internal Medicine Pulmonary Disease
PROC: XW033E5 Introduction of Remdesivir Anti-infective into Peripheral Vein, Percutaneous Approach, New Technology Group 5 (ICD-10-PCS; principal; 2020-07-19)
DX: U07.1 COVID-19 (principal); J12.89 Other viral pneumonia; D69.6 Thrombocytopenia, unspecified; E87.1 Hypo-osmolality and hyponatremia; M41.9 Scoliosis, unspecified; E66.01 Morbid (severe) obesity due to excess calories; J96.01 Acute respiratory failure with hypoxia; E87.6 Hypokalemia; F41.9 Anxiety disorder, unspecified; E86.0 Dehydration; J20.8 Acute bronchitis due to other specified organisms; Z68.35 Body mass index [BMI] 35.0-35.9, adult; Z82.49 Family history of ischemic heart disease and other diseases of the circulatory system
CPT/HCPCS: 36415; 36600; 71045; 74176; 80048; 80053; 80076; 81001; 82150; 82805; 82962; 83605; 83690; 83735; 84100; 84484; 85025; 85610; 85730; 87040; 87081; 87086; 87426; 94640; 96361; 96365; 96367; 96375; G0378; J1100; J1956; J2405; J2543; J3480; J3490

== ENCOUNTER 2022-05-10 03:55 | Emergency (ER) | payer MEDICAID ==
[~2022-05-10] VITALS: Ht 154.9 cm; Wt 91.0 kg
[2022-05-10 03:55] VITALS: BP 124/45
[~2022-05-10 03:55] MED LIST changes: +BUDE1AER4 IN; +CHOL50007 PO
== END 2022-05-10 05:18 | disposition left against medical advice (07) ==
LOC: ER 03:55
DX: F41.9 Anxiety disorder, unspecified (principal); R07.89 Other chest pain; Z53.21 Procedure and treatment not carried out due to patient leaving prior to being seen by health care provider
CPT/HCPCS: 93005

== ENCOUNTER 2023-08-29 08:57 | Emergency (ER) | payer MEDICAID ==
[~2023-08-29] VITALS: Ht 154.9 cm; Wt 94.0 kg
[2023-08-29 09:15] VITALS: BP 119/80; PULSE 106; RESP 22; TEMP 97.5; O2SAT 97
[2023-08-29] MEDS ORDERED: KETOROLAC TROMETH 60MG/2ML VIAL IM ONE (10:15)
[2023-08-29] MEDS ORDERED: HYDROcodone-ACET 5/325MG TAB PO ONE (10:15)
[2023-08-29] MEDS ORDERED: IBUP-1456 PO (10:59)
[2023-08-29] MEDS ORDERED: METH-1182 PO (10:59)
== END 2023-08-29 11:05 | disposition home or self-care (01) ==
LOC: ER 08:57
DX: M54.42 Lumbago with sciatica, left side (principal); X50.1XXA Overexertion from prolonged static or awkward postures, initial encounter; Y93.01 Activity, walking, marching and hiking; Y92.89 Other specified places as the place of occurrence of the external cause; Y99.8 Other external cause status
CPT/HCPCS: 72100; 96372; 99283; J1885

== ENCOUNTER 2025-06-02 15:47 | Emergency (ER) | payer MEDICAID ==
[~2025-06-02] VITALS: Ht 154.9 cm; Wt 100.0 kg
[~2025-06-02 15:47] MED LIST changes: +IBUP-1456 PO; +METH-1182 PO
[2025-06-02 16:12] VITALS: BP 106/68; PULSE 109; RESP 16; TEMP 98.1; O2SAT 95
[2025-06-02] MEDS: KETOROLAC TROMETH 60MG/2ML VIAL IM ONE (16:29)
--- NOTE | 2025-06-02 16:43 | DVH ---
Indication: low back pain Technique: XY LUMBAR SPINE 3 VIEWXY Comparison: 08/29/2023 FINDINGS/IMPRESSION: S shaped scoliosis thoracolumbar spine with thoracic dextroscoliosis and lumbar levoscoliosis. Chronic appearing L3 compression deformity with 30% loss height. This is similar to previous examinat ion Moderate multilevel disc space narrowing. Chronic appearing T10 and T11 compression deformities with 20% loss height.
--- NOTE | 2025-06-02 16:49 | ED.PDOC ---
Back pain HPI HPI Comments A 34 YEAR OLD FEMALE PRESENTS TO THE ED WITH COMPLAINT OF RIGHT LOWER BACK PAIN THAT RADIATES DOWN RIGHT LEG. PATIENT STATES SHE HAS BEEN EXPERIENCING RIGHT- SIDED LOWER BACK PAIN THAT RADIATES DOWN HER RIGHT LEG FOR THE PAST 1 WEEK. PATIENT REPORTS HER PAIN IS WORSE WITH MOVEMENT. PATIENT NOTES SHE ALSO HAS MILD PAINFUL URINATION AND SUPRAPUBIC PRESSURE, BUT IS NOT SURE IF THIS IS RELATED TO HER LOWER BACK PAIN. PATIENT DENIES HEMATURIA, FLANK PAIN, SADDLE ANESTHESIA, URINARY INCONTINENCE, BOWEL INCONTINENCE, FEVER, CHILLS, SHORTNESS OF BREATH, CHEST PAIN, ABDOMINAL PAIN, NAUSEA, VOMITING, HEADACHE, OR OTHER COMPLAINTS. NO OTHER SYMPTOMS OR MODIFYING FACTORS AT THIS TIME. PATIENT IS ALERT, ORIENTED X 4, AND HAS STEADY GAIT. Chief Complaint: Back Pain Time Seen by MD: 15:53 Primary Care Provider: GARO Reviewed Notes: Nurses Notes, Medications, Allergies Allergies: Coded Allergies: NO KNOWN ALLERGIES (Unverified , 01/25/12) Home Meds Active Scripts Tramadol HCl (Tramadol HCl) 50 Mg Tab, 50 MG PO TID, #24 TAB Prov:WILFRED ROBERTS 06/02/25 Prednisone (Prednisone) 20 Mg Tab, 40 MG PO DAILY, #20 TAB Prov:WILFRED ROBERTS 06/02/25 Methocarbamol (Methocarbamol) 750 Mg Tab, 750 MG PO BID, #20 TAB Prov:WILFRED ROBERTS 08/29/23 Ibuprofen (Ibuprofen) 800 Mg Tab, 1 TAB PO TID, #30 TAB Prov:WILFRED ROBERTS 08/29/23 Cholecalciferol (VITAMIN D3) 5,000 Unit Cap, 5000 UNIT PO DAILY for 30 Days, CAP Prov:ysabel07/13/20 Budesonide-Formoterol Fumarate (Budesonide/Formoterol Fum 160-4.5 Mcg/Act) 1 Aer Aer, 1 AER IN UD for 30 Days, AER Prov:07/13/20 Reported Medications Hydroxyzine Pamoate (Hydroxyzine Pamoate) 50 Mg Cap, DAILY 05/25/12 Information Source: Patient Mode of Arrival: Ambulatory Timing: Days Duration: Since onset, Days Location of Back pain: (R) Lumbar Radiates to: Posterior: (R) Buttocks, (R) Calf, (R) Thigh Radiates to: Medial: (R) Buttocks, (R) Calf, (R) Thigh Radiates to: Lateral: (R) Buttocks, (R) Calf, (R) Thigh Severity: Moderate Prehospital treatment: None Quality: Aching, Cramping Onset: Spontaneous History of: None Modifying Factors: Movement Associated signs and symptoms: None Past Medical History PAST MEDICAL HISTORY: Anxiety Past Medical History (Other): SCOLIOSIS Surgical History: Denies all surgeries DATA COORDINATOR History: No Pertinent DATA COORDINATOR History Family History Family History: Reviewed,noncontributory to illness Social History Smoker: Non-Smoker Alcohol: Occasionally Drugs: Denies Drug Use Lives In: Home Constitutional: denies: chills, diaphoresis, fatigue, fever, malaise, sweats, weakness, others EENTM: denies: blurred vision, double vision, ear bleeding, ear discharge, ear drainage, ear pain, ear ringing, eye pain, eye redness, hearing loss, mouth pain, mouth swelling, nasal discharge, nose bleeding, nose congestion, nose pain, photophobia, tearing, throat pain, throat swelling, voice changes, others Respiratory: denies: cough, hemoptysis, orthopnea, SOB at rest, shortness of breath, SOB with excertion, stridor, wheezing, others Cardiovascular: denies: chest pain, dizzy spells, diaphoresis, Dyspnea on exertion, edema, irregular heart beat, left arm pain, lightheadedness, palpitations, PND, syncope, others Gastrointestinal: denies: abdomen distended, abdominal pain, blood streaked bowels, constipated, diarrhea, dysphagia, difficulty swallowing, hematemesis, melena, nausea, poor appetite, poor fluid intake, rectal bleeding, rectal pain, vomiting, others Genitourinary: denies: abnormal vagina bleeding, burning, dyspareunia, dysuria, flank pain, frequency, hematuria, incontinence, pain, , vagina discharge, urgency, others Neurological: denies: dizziness, fainting, headache, left sided numbness, left sided weakness, numbness, paresthesia, pre-existing deficit, right sided numbness, right sided weakness, seizure, speech problems, tingling, tremors, weakness, others Musculoskeletal: reports: back pain (LOWER BACK PAIN THAT RADIATES DOWN RIGHT LEG), muscle pain; denies: gout, joint pain, joint swelling, muscle stiffness, neck pain, others Integumetry: denies: bruises, change in color, change in hair/nails, dryness, laceration, lesions, lumps, rash, wounds, others Allergic/Immunocompromised: denies: Difficulty Healing, Frequent Infections, Hives, Itching, others Hematologic/Lymphatic: denies: anemia, blood clots, easy bleeding, easy bruising, swollen glands, others Endocrine: denies: excessive hunger, excessive sweating, excessive thirst, excessive urination, flushing, intolerance to cold, intolerance to heat, unexplained weight gain, unexplained weight loss, others Psychiatric: denies: anxiety, bipolar disorder, depression, hopeless, panic disorder, schizophrenia, sleepless, suicidal, others All Other Systems: Reviewed and Negative Physical Exam General Appearance: No Apparent Distress, Obese HEENT: Normal ENT Inspection, PERRL/EOMI, Pharynx Normal, TMs Normal Neck: Full Range of Motion, Non-Tender, Normal, Normal Inspection Respiratory: Chest Non-Tender, Lungs Clear, No Accessory Muscle Use, No Respiratory Distress, Normal Breath Sounds Cardiovascular: No Edema, No JVD, No Murmur, No Gallop, Normal Peripheral Pulses, Regular Rate/Rhythm Breast Exam: Deferred Gastrointestinal: No Organomegaly, Non Tender, No Pulsatile Mass, Normal Bowel Sounds, Soft Genitalia: Deferred Pelvic: Deferred Rectal: Deferred Extremities: No calf tenderness, Normal capillary refill, Normal inspection, Normal range of motion, Non-tender, No pedal edema Musculoskeletal : Location: Bilateral Extremity Location: Back Apperance: Tenderness: Moderate (TENDERNESS AND MUSCLE SPASM ON LOWER BACK, NO BONY TENDERNESS, SWELLING AND DEFORMITY. +SCOLIOSIS. ) Neurologic: Alert, head of marketing adometry II-XII nml as Tested, No Motor Deficits, Normal Affect, Normal Mood, No Sensory Deficits Cerebellar Function: Normal Reflexes: Normal Skin: Dry, Normal Color, Warm Peripheral Pulses: 2+ carotid (R), 2+ carotid (L) Lymphatic: No Adenopathy Was a procedure done? Was a procedure done?: No Back Pain Differential Dx Differential Diagnosis: Musculoskeletal Pain, Strain, Other (DDD/DJD OF LOW BACK ) Other Differential Diagnosis UTI, ACUTE CYSTITIS, MUSCLE SPASM X-Ray, Labs, Meds, VS Vital Signs Date Time Temp Pulse Resp B/P (MAP) Pulse Ox O2 Delivery O2 Flow Rate FiO2 06/02/25 16:12 98.1 109 16 106/68 (81) 95 98.1 06/02/25 16:12 109 16 95 Room Air 0 06/02/25 15:50 98.0 113 18 128/75 98 98.0 Lab Test 06/02/25 16:08 Range/Units Urine Color Yellow Yellow Urine Clarity Turbid H Clear Urine pH 5.0 5.0-9.0 Urine Specific [place] 1.031 1.001-1.035 Urine Protein Trace H Negative Urine Ketones Negative Negative Urine Blood Negative Negative /uL Urine Nitrite Negative Negative Urine Bilirubin Negative Negative Urine Urobilinogen Normal Negative mg/dL Urine Leukocyte Esterase 1+ Negative /uL Urine RBC 29 0 - 4 /hpf Urine Microscopic WBC 15 H 0-5 /HPF Urine Squamous Epithelial Cells Mod <5 /hpf Urine Bacteria Few H None Seen /hpf Urine Mucus Few None Seen Urine Glucose Normal Normal mg/dL Current Medications Medications (Trade) Dose Ordered Sig/Charbel Route Start Time Stop Time Status Last Admin Ketorolac Tromethamine (Toradol Injection) 60 mg ONCE ONCE IM 06/02/25 16:30 06/02/25 16:31 DC 06/02/25 16:29 Indication: low back pain Technique: XY LUMBAR SPINE 3 VIEWXY Comparison: 08/29/2023 FINDINGS/IMPRESSION: S shaped scoliosis thoracolumbar spine with thoracic dextroscoliosis and lumbar levoscoliosis. Chronic appearing L3 compression deformity with 30% loss height. This is similar to previous examination Moderate multilevel disc space narrowing. Chronic appearing T10 and T11 compression deformities with 20% loss height. ATED BY: RC HURLEY MD DICTATED DATE/TIME: 06/02/251642 SIGNED BY: RC HURLEY MD SIGNED DATE/TIME: 06/02/251642 CC: X-Ray, Labs, Meds, VS Comment EXTERNAL MEDICAL RECORDS REVIEWED: [NONE] INDEPENDENT HISTORIANS: [NONE] SOCIAL DETERMINANTS OF HEALTH: [NONE] LABS ORDERED: UA REVIEWED AND INTERPRETED RESULTS: LEUKO 1+ IMAGING ORDERED: XR L-SPINE TREATMENTS ORDERED: TORADOL 60MG IM PROCEDURES PERFORMED: NONE CRITICAL CARE TIME: NONE I HAVE DISCUSSED THE PATIENT WITH THE ATTENDING PHYSICIAN, DR. CHAUHAN HE AGREES WITH THE PATIENT'S PLAN OF CARE AND DISPOSITION. BASED ON HISTORY OF PRESENT ILLNESS, AND PHYSICAL EXAM, PATIENT WILL BE DISCHARGED HOME. DISCUSSED PLAN FOR DISCHARGE HOME WITH RX [ULTRAM AND PREDNISONE]. MEDICATION WARNINGS GIVEN. SHARED DECISION MAKING: DISCUSSED WITH PATIENT THAT THEIR WORKUP WAS NORMAL. PATIENT INSTRUCTED TO FOLLOW UP WITH PRIMARY CARE PROVIDER IN 1-2 DAYS FOR RE- EVALUATION OF SYMPTOMS. PATIENT VERBALIZES UNDERSTANDING TO RETURN TO ED FOR NEW OR WORSENING SYMPTOMS OR IF FOLLOW UP WITH PCP CANNOT BE OBTAINED. PATIENT FEELS COMFORTABLE GOING HOME AT THIS TIME. ALL QUESTIONS ADDRESSED AT TIME OF DISCHARGE. Images Reviewed?: Images reviewed and evaluated by me Time of 1ST Reevaluation: 17:26 Reevaluation 1ST: Improved Patient Education/Counseling: Diagnosis, Treatment, Need For Follow Up Family Education/Counseling: Diagnosis, Treatment, Need For Follow Up Medical Screening: No EMC Exist At This Time SEPSIS Sepsis Screen Date sepsis recognized/suspect: Jun 02, 2025 Time Sepsis recognized/suspect: 1550 Recent Procedure: No On Antibiotic Therapy: No Respiratory Rate >20: No Heart Rate >90: Yes Temp<36 C (96.8 F) or >38.3 C: No SBP <90 or MAP <65 mmHG: No New Acute Mental Status Change: No Is the patient on CPAP, BIPAP,: No Physician Orders Lumbar Spine 3 View (06/02/25 16:16) Vital Signs Date Time Temp Pulse Resp B/P (MAP) Pulse Ox O2 Delivery O2 Flow Rate FiO2 06/02/25 16:12 98.1 109 16 106/68 (81) 95 98.1 06/02/25 16:12 109 16 95 Room Air 0 06/02/25 15:50 98.0 113 18 128/75 98 98.0 Medications Medications Dose Ordered Sig/Charbel Route Start Time Stop Time Status Last Admin Dose Admin Ketorolac Tromethamine 60 mg ONCE ONCE IM 06/02/25 16:30 06/02/25 16:31 DC 06/02/25 16:29 Departure 1 Departure Time of Disposition: 17:26 Impression: Primary Impression: Scoliosis Qualified Codes: M41.9 - Scoliosis, unspecified Additional Impression: DDD (degenerative disc disease), lumbosacral Qualified Codes: M51.372 - Other intervertebral disc degeneration, lumbosacral region with discogenic back pain and lower extremity pain Disposition: 01 HOME / SELF CARE / HOMELESS Condition: Stable Additional Instructions: FOLLOW UP WITH PCP IN 1-2 DAYS. TAKE MEDICATIONS PRESCRIBED. RETURN TO ED FOR ANY NEW OR WORSENING SYMPTOMS. e-Prescriptions Tramadol HCl (Tramadol HCl) 50 Mg Tab 50 MG PO TID, #24 TAB Prov: WILFRED ROBERTS 06/02/25 Prednisone (Prednisone) 20 Mg Tab 40 MG PO DAILY, #20 TAB Prov: WILFRED ROBERTS 06/02/25 Discharged With: Self Critical Care Note Critical Care Time?: No Stability Stability form required: No I personally scribed for WILFRED ROBERTS ([email or web address]) on 06/02/25 at 16:49. Electronically submitted by Osvaldo Newman (Ambassador). I personally scribed for WILFRED ROBERTS ([email or web address]) on 06/02/25 at 16:50. Electronically submitted by Osvaldo Newman (Ambassador). I personally scribed for WILFRED ROBERTS ([email or web address]) on 06/02/25 at 17:04. Electronically submitted by Osvaldo Newman (Ambassador). WILFRED ROBERTS Jun 02, 2025 16:49
[2025-06-02 16:53] LABS: Urine Protein, UAD TRACE (Negative)
[2025-06-02] MEDS ORDERED: TRAM-626 PO (17:05)
[2025-06-02] MEDS ORDERED: PRED20TA2 PO (17:05)
== END 2025-06-02 17:16 | disposition home or self-care (01) ==
LOC: ER 15:47
DX: M41.9 Scoliosis, unspecified (principal); M51.360 Other intervertebral disc degeneration, lumbar region with discogenic back pain only; F41.9 Anxiety disorder, unspecified; Z79.899 Other long term (current) drug therapy
CPT/HCPCS: 72100; 81001; 96372; 99284; J1885